=== PATIENT | male | born 1995 | race Two or more races ===

== ENCOUNTER → 2022-07-26 | Emergency (ER) | payer OTHER ==
[~2022-07-26] MED LIST: GILTUSS TR TAB1 EACH PO; PROVENTIL3 ML/2.5 M IH; SINGULAIR 10MG10 MG PO; SYMBICORT 16010.2 GM IH
== END | disposition home or self-care (01) ==
LOC: ER 11:56
DX: S93.491A Sprain of other ligament of right ankle, initial encounter (principal); Y93.67 Activity, basketball; Y93.89 Activity, other specified; Y92.89 Other specified places as the place of occurrence of the external cause; Z91.013 Allergy to seafood; J45.909 Unspecified asthma, uncomplicated